=== PATIENT | female | born 1970 | race Two or more races ===

== ENCOUNTER 2019-04-01 19:33 | Emergency (ER) | payer MEDICAID ==
[~2019-04-01] VITALS: Ht 175.3 cm; Wt 60.8 kg
[2019-04-01 19:55] VITALS: BP 123/77
[2019-04-01] MEDS ORDERED: ACETAMINOPHEN 500 MG TAB PO ONE (20:00)
[2019-04-01] MEDS ORDERED: IBUPROFEN 600 MG TAB PO ONE (23:00)
[2019-04-01] MEDS ORDERED: METHOCARBAMOL 500 MG TAB PO ONE (23:00)
== END 2019-04-01 23:15 | disposition home or self-care (01) ==
LOC: EDBD 19:33 → ER 19:39
DX: M25.572 Pain in left ankle and joints of left foot (principal); M25.532 Pain in left wrist; M54.2 Cervicalgia; R51 Headache; M62.838 Other muscle spasm; V43.52XA Car driver injured in collision with other type car in traffic accident, initial encounter; Y93.89 Activity, other specified; Y92.488 Other paved roadways as the place of occurrence of the external cause; Y99.8 Other external cause status
CPT/HCPCS: 73110; 73600; 73630; 81025